=== PATIENT | male | born 1985 | race Caucasian/White ===

== ENCOUNTER 2020-05-04 18:00 | Emergency (ER) | payer MEDICAID, OTHER ==
[~2020-05-04] VITALS: Ht 182.9 cm; Wt 118.3 kg
[~2020-05-04 18:00] MED LIST: CLON0.5T PO; CLON1TAB PO; LISI-167 PO; LORA-446 PO; QUET300T5 PO; QUET400T PO
[2020-05-04 19:05] LABS: BASOPHILS # (AUTO) 0.11 x10^3/uL (0-0.1); BASOPHILS % (AUTO) 1 % (0-1); EOSINOPHILS # (AUTO) 0.17 x10^3/uL (0-0.4); EOSINOPHILS % (AUTO) 2 % (1-7); LYMPHOCYTES # (AUTO) 3.45 x10^3/uL (1-3.4); LYMPHOCYTES % (AUTO) 39 % (22-44); MD NO; MEAN CORPUSCULAR HEMOGLOBIN 30.9 pg (27.5-34.5); MEAN CORPUSCULAR HGB CONC 33.2 g/dL (33.2-36.2); MONOCYTES # (AUTO) 0.53 x10^3/uL (0.2-0.8); MONOCYTES % (AUTO) 6 % (2-9); NEUTROPHILS % (AUTO) 52 % (42-75); PLATELET COUNT 229 x10^3/uL (130-400); RED BLOOD COUNT 4.57 x10^6/uL (4.38-5.82); RED CELL DISTRIBUTION WIDTH 14.1 % (9.4-14.8)
[2020-05-04 19:14] LABS: ALANINE AMINOTRANSFERASE 38 U/L (12-78); ALBUMIN 3.2 g/dL (3.4-5.0); ANION GAP 7 mmol/L (5-15); CALCIUM 8.3 mg/dL (8.5-10.1); CHLORIDE 110 mmol/L (98-107); CREATININE 0.89 mg/dL (0.7-1.3)
[2020-05-04 19:15] LABS: SALICYLATE LEVEL < 1.7 mg/dL (2.8-20.0)
[2020-05-04 19:25] LABS: ALKALINE PHOSPHATASE 92 U/L (45-117); BILIRUBIN,TOTAL 0.4 mg/dL (0.2-1.0)
--- NOTE | 2020-05-04 20:03 | NUR ---
PT TO ROOM NOW.
[2020-05-04] MEDS ORDERED: RIVA10TA2 PO (20:18)
[2020-05-04] MEDS ORDERED: QUET400T4 PO (20:18)
[2020-05-04] MEDS ORDERED: OMEP10CA5 PO (20:18)
--- NOTE | 2020-05-04 20:19 | NUR ---
PT LAYING IN BED, COOPERATIVE. CALM BUT RUBBING FACE IN GESTURE OF STRESS. ALL BELONGINGS PLACED IN LOCKER, ROOM SECURED AND PT IN VIEW OF SITTER.
[2020-05-04 20:30] LABS: MICROSCOPIC NOT IND
[2020-05-04 20:40] LABS: AMPHETAMINE SCREEN, URINE Positive (Negative); BARBITURATE SCREEN, URINE Negative (Negative); BENZODIAZEPINE SCREEN, URINE Negative (Negative); CANNABINOID SCREEN, URINE Negative (Negative); COCAINE SCREEN, URINE Negative (Negative); METHADONE SCREEN, URINE Negative (Negative); OPIATE SCREEN, URINE Negative (Negative)
--- NOTE | 2020-05-04 20:51 | NUR ---
PT GIVEN FOOD. PT ASKED FOR MEDICATION "FOR THE VOICES" PT PROCEDED TO LAY DOWN AND CLOSE EYES. ERP MADE AWARE, WILL WATCH FOR ORDERS.
--- NOTE | 2020-05-04 21:56 | NUR ---
PT LAYING IN BED, SLEEPING, RESPIRATIONS EVEN AND UNLABORED, PT REMAINS IN VIEW OF THE SITTER. AWAITING TELEPSYCH CONSULT.
--- NOTE | 2020-05-04 22:48 | NUR ---
PT CONDITION REMAINS UNCHANGED.
--- NOTE | 2020-05-05 00:38 | NUR ---
PT REMAINS ASLEEP, CHANGING POSITIONS IN BED. AWAITING TELESPYCH.
--- NOTE | 2020-05-05 01:18 | NUR ---
TELESPYCH COMPLETED. PT AMBULATORY TO BATHROOM, STEADY GAIT. ASKING FOR SNACKS, FOOD PROVIDED.
--- NOTE | 2020-05-05 02:11 | NUR ---
HOSPITAL BED REQUESTED AT THIS TIME. ERP MADE AWARE OF PT'S MEDICATION REQUESTS, AWAITING ORDERS.
[2020-05-05] MEDS ORDERED: QUETIAPINE 100MG TABLET ONE ×3 (02:19→19:27)
--- NOTE | 2020-05-05 02:24 | NUR ---
PT MEDICATED PER MAR, UPDATED ON POC. ALL NEEDS MET AT THIS TIME. PT REMAINS IN VIEW OF SITTER.
[2020-05-05] MEDS ORDERED: QUETIAPINE 100MG TABLET PO ONE (02:30)
--- NOTE | 2020-05-05 02:59 | NUR ---
PT AMBULATORY TO BATHROOM. PT PLACED ON HOSPITAL BED, AND GIVEN MILK PER REQUEST.
--- NOTE | 2020-05-05 03:16 | NUR ---
MT: PSYCH PACKET FAXED TO [facility] AND MARY
--- NOTE | 2020-05-05 03:28 | NUR ---
MT: [facility] DENIED PT BECAUSE THEY DO NOT HAVE A CONTRACT WITH [facility].
--- NOTE | 2020-05-05 04:43 | NUR ---
PT LAYING IN BED SLEEPING, REMAINS IN VIEW OF THE SITTER.
--- NOTE | 2020-05-05 05:21 | NUR ---
PT CONDITION REMAINS UNCHANGED.
--- NOTE | 2020-05-05 07:41 | NUR ---
BEDSIDE REPORT FROM RODOLFO NAJERA, PT SLEEPING IN HOSPITAL BED WITH SITTER AT BEDSIDE. BREAKFAST TRAY ORDERED
--- NOTE | 2020-05-05 08:41 | NUR ---
PT WAS GIVEN BREAKFAST DIET TRAY AND IS EATING QUIETLY.
[2020-05-05] MEDS: QUETIAPINE 100MG TABLET PO SCH ×2 (14:50→19:34)
--- NOTE | 2020-05-05 21:00 | NUR ---
assumed care of pt. report form Giuliano NAJERA. pt here for SI. pt reports that he is still feeling suicidal at this time. reports a hx of schizophrenic and bipolar disorder. pt reports that he has had mulitple previous suicide attempts and that his current plan would be to get a gun and use it on himself. pt is calm and cooperatve. pt has had meal tray room secure. sitter present for safety. pt updated on POC
--- NOTE | 2020-05-05 21:05 | NUR ---
pt is on a hospital bed for comfort
--- NOTE | 2020-05-05 22:02 | NUR ---
pt sleeping in postion of comfort. no apparent distress. room secure. sitter present for safety
--- NOTE | 2020-05-05 23:48 | NUR ---
no changes. pt sleeping in position of comfort. no apparent distress room secure. sitter present for safety
--- NOTE | 2020-05-06 01:00 | NUR ---
pt sleeping. room secure. sitter present for safety
--- NOTE | 2020-05-06 01:33 | NUR ---
no changes. report to Shagufta NAJERA for lunch
--- NOTE | 2020-05-06 02:15 | NUR ---
pt sleeping in position of comfort with lights dimmed. no apparent distress room secure. sitter present for safety
--- NOTE | 2020-05-06 03:15 | NUR ---
no changes. pt sleeping in position of comfort with lights dimmed. no apparent distress. room secure. sitter present for safety
--- NOTE | 2020-05-06 03:56 | NUR ---
pt continues sleeping in position of comfort. no apparent distress. room secure. sitte present fo safety
--- NOTE | 2020-05-06 05:01 | NUR ---
no changes. pt remains asleep. no apparent distress room secure. sitter present for safety
--- NOTE | 2020-05-06 06:02 | NUR ---
pt still resting in position of comfort. no apparent distress. room secure. sitter present for safety
--- NOTE | 2020-05-06 07:00 | NUR ---
report to Ghazal NAJERA
--- NOTE | 2020-05-06 07:03 | NUR ---
REPORT RECEIVED FROM GAY NAJERA. PT IS SLEEPING ON HOSPITAL BED, RESP EVEN AND UNLABORED, MARY.
--- NOTE | 2020-05-06 08:10 | NUR ---
PT COOPERATIVE W/ VS, VSS, URIELN. PT OFFERED SHOWER, PT STATES HE WOULD LIKE TO SHOWER AFTER LUNCH.
--- NOTE | 2020-05-06 08:10 | NUR ---
GARAGE DOORS DOWN, SITTER OUTSIDE ROOM FOR SAFETY.
--- NOTE | 2020-05-06 08:26 | NUR ---
BREAKFAST TRAY DELIVERED.
[2020-05-06] MEDS ORDERED: QUETIAPINE 100MG TABLET ONE ×2 (08:27→17:39)
[2020-05-06] MEDS: QUETIAPINE 100MG TABLET PO SCH ×2 (08:31→17:42)
--- NOTE | 2020-05-06 08:55 | NUR ---
PT REPORTS HE HAS BEEN ON AN UNKNOWN DOSE OF XARELTO X5 WEEKS FOR "CLOTS IN THE LUNGS". PT REPORTS HE HAS BEEN OFF NOW FOR 2-3 DAYS DUE TO HOLD AT THIS FACILITY. PT REPORTS HE WAS SEEN AT [facility] AND PICKED UP RX AT A WEB [facility]Y. MEDICAL RECORDS REQUEST SIGNED AND FAXED TO [facility] @ [phone].
--- NOTE | 2020-05-06 09:10 | NUR ---
SPOKE W/ PHARMACIST FROM [facility] [phone]. PT PICKED UP RX FOR XARELTO DOSE PACK ON 04/07/20. RX WRITTEN 15MG BID X21 DAYS THEN 20MG DAILY X9 DAYS. DX FOR RX IS PE. DR.VAN ROBERTSON UPDATED, REPORTS HE WILL ORDER XARELTO 20MG DAILY FOR PT.
[2020-05-06] MEDS ORDERED: RIVAROXABAN 20 MG TABLET ONE (09:19)
[2020-05-06] MEDS: RIVAROXABAN 20 MG TABLET PO SCH (09:20)
--- NOTE | 2020-05-06 09:25 | NUR ---
PT MEDICATED W/ XARELTO ORDERED, PT RESTING ON HOSPITAL BED W/ SITTER OUTSIDE ROOM AND GARAGE DOORS DOWN FOR SAFETY. RESP EVEN AND UNLABORED, MARY.
--- NOTE | 2020-05-06 10:42 | NUR ---
PT SLEEPING ON HOSPITAL BED W/ SITTER OUTSIDE ROOM AND GARAGE DOORS DOWN FOR SAFETY. RESP EVEN AND UNLABORED, URIELN.
--- NOTE | 2020-05-06 12:17 | NUR ---
LUNCH TRAY DELIVERED.
--- NOTE | 2020-05-06 12:43 | NUR ---
PT SLEEPING ON HOSPITAL BED W/ SITTER OUTSIDE ROOM AND GARAGE DOORS DOWN FOR SAFETY. RESP EVEN AND UNLABORED, URIELN.
--- NOTE | 2020-05-06 12:51 | NUR ---
PT AMBULATED TO THE SHOWER W/ A STEADY GAIT. NEW GOWN AND SOCKS PROVIDED. SITTER OUTSIDE SHOWER ROOM FOR SAFETY.
--- NOTE | 2020-05-06 13:49 | NUR ---
PT RESTING ON HOSPITAL BED W/ SITTER OUTSIDE ROOM AND GARAGE DOORS DOWN FOR SAFETY. RESP EVEN AND UNLABORED, NADN. PROVIDED MILK PER PT REQUEST. DENIES FURTHER NEEDS AT THIS TIME.
--- NOTE | 2020-05-06 14:47 | NUR ---
SPOKE W/ MEDICAL RECORDS FROM [facility], THEY REPORT THEY FAXED 14 PAGES TO [phone] BUT WILL RESEND RECORDS NOW.
--- NOTE | 2020-05-06 16:50 | NUR ---
RECORDS RECEIVED FROM [facility] AND GIVEN TO DR.GRAUSZ SHO RADER. NO NEW ORDERS REQUIRED AT THIS TIME.
--- NOTE | 2020-05-06 17:28 | NUR ---
PT RESTING ON HOSPITAL BED W/ SITTER OUTSIDE ROOM AND GARAGE DOORS DOWN FOR SAFETY. RESP EVEN AND UNLABORED, MARY.
--- NOTE | 2020-05-06 17:44 | NUR ---
Pt provided with meal with safety precautions.
--- NOTE | 2020-05-06 17:45 | NUR ---
PT C/O AUDITORY HALLUCINATIONS AND INCREASING AGITATION/ANXIETY. PT REQUESTING PRN MEDS. DR.GRAUSZ SHO RADER UPDATED, GAVE OK TO GIVE SEROQUEL DOSE EARLY. PT MEDICATED PER EMAR, GIVEN DINNER TRAY, DENIES FURTHER NEEDS AT THIS TIME.
--- NOTE | 2020-05-06 18:58 | NUR ---
REPORT GIVEN TO NITHIN NAJERA. PT SLEEPING ON HOSPITAL BED W/ SITTER OUTSIDE ROOM AND GARAGE DOORS DOWN FOR SAFETY.
--- NOTE | 2020-05-06 19:50 | NUR ---
PT RESTING IN GURNEY, NAD NOTED, BREATHING EVEN AND UNLABORED, SITTER IN VIEW, SAFETY OF ROOM ENSURED, WILL CONTINUE TO MONITOR
[2020-05-06] MEDS ORDERED: TRAZODONE 50MG TABLET ONE (20:16)
--- NOTE | 2020-05-06 20:56 | NUR ---
PT MEDICATED PER MAR, PT AMBULATED WITHOUT ASSISTANCE TO RESTROOM, PROVIDED WITH GRAHMCRACKERS AND MILK PER REQUEST, SITTER IN VIEW, SAFETY OF ROOM ENSURED
[2020-05-06] MEDS ORDERED: TRAZODONE 50MG TABLET PO PRN (21:00)
--- NOTE | 2020-05-06 22:38 | NUR ---
PT APPEARS TO BE SLEEPING WITH NAD NOTED, BREATHING EVEN AND UNLABORED, SAFETY OF ROOM ENSURED, SITTER IN VIEW
--- NOTE | 2020-05-06 23:46 | NUR ---
NO CHANGES, PT APPEARS SLEEPING AND COMFORTABLE, SITTER IN VIEW FOR SAFETY
--- NOTE | 2020-05-07 00:52 | NUR ---
PT CONTINES TO SLEEP IN BED, NAD NOTED, SAFETY OF ROOM ENSURED, SITTER IN VIEW
--- NOTE | 2020-05-07 01:11 | NUR ---
PT PROVIDED WITH APPLE JUICE PER REQUEST
--- NOTE | 2020-05-07 02:34 | NUR ---
PT RESTING AND APPEARS COMFORTABLE IN BED, NAD NOTED, BREATHING EVEN AND UNLABORED, SAFETY OF ROOM ENSURED, SITTER IN VIEW, WILL CONTINUE TO MONITOR
--- NOTE | 2020-05-07 03:36 | NUR ---
NO CHANGES, PT RESTING, SITTER IN VIEW
--- NOTE | 2020-05-07 04:44 | NUR ---
PT RESTING AND APPEARS COMFORTABLE IN BED, NAD NOTED, BREATHING EVEN AND UNLABORED, SAFETY OF ROOM ENSURED, SITTER IN VIEW, WILL CONTINUE TO MONITOR
--- NOTE | 2020-05-07 05:54 | NUR ---
NO CHANGES, PT RESTING, SITTER IN VIEW
[2020-05-07] MEDS ORDERED: QUETIAPINE 100MG TABLET ONE (07:25)
[2020-05-07] MEDS ORDERED: RIVAROXABAN 20 MG TABLET ONE (07:25)
[2020-05-07] MEDS: QUETIAPINE 100MG TABLET PO SCH (08:43)
[2020-05-07] MEDS: RIVAROXABAN 20 MG TABLET PO SCH (08:43)
--- NOTE | 2020-05-07 08:44 | NUR ---
PT PROVIDED WITH MEAL TRAY, PT STATES HE REMAINS "FEELING THE SAME" STATE HE STILL FEELS SUICIDAL. PT MEDICATED PER MAR, PT REQUESTING TO SLEEP, DOOR SHUT PER REQUEST, SITTER IN PLACE. NO OTHER NEEDS AT THIS TIME.
--- NOTE | 2020-05-07 10:09 | NUR ---
THROUGHPUT: UPDATED PACKET REFAXED TO [facility] PER FACILITY REQUEST.
--- NOTE | 2020-05-07 11:48 | NUR ---
PT CONTINUES TO REST ON HOSPITAL BED, VISIBLE CHEST RISE AND FALL NOTED, NAD
[2020-05-07 14:19] VITALS: BP 97/57
--- NOTE | 2020-05-07 14:59 | NUR ---
MEAL TRAY PROVIDED. NO OTHER NEEDS AT THIS TIME
--- NOTE | 2020-05-07 18:00 | NUR ---
PT GIVEN MEAL TRAY, PER JEFFY GUTIERREZ PT IS TO BE DECERFIED LH AND DISCHARGED. PT GIVEN ALL BELONGINGS BACK, AWAITING DC PAPERWORK
--- NOTE | 2020-05-07 18:50 | NUR ---
PT LEFT WITHOUT RECIEVING PAPERS. PT HAD SCRIPT FROM FOR SEROQUEL, STATES "I CAN LEAVE RIGHT IM FREE, I NEED TO GET [facility]" WILL UPDATE ERMD
[2020-05-07] MEDS ORDERED: QUETIAPINE 100MG TABLET PO SCH (21:00)
[2020-05-08] MEDS ORDERED: QUETIAPINE 100MG TABLET PO SCH (09:00)
== END 2020-05-07 19:04 | disposition home or self-care (01) ==
LOC: ED 05-05 09:16
DX: R45.851 Suicidal ideations (principal); R44.0 Auditory hallucinations; I10 Essential (primary) hypertension; F17.210 Nicotine dependence, cigarettes, uncomplicated; Z88.0 Allergy status to penicillin
CPT/HCPCS: 36415; 80053; 80307; 81003; 84443; 85025; 99285

== ENCOUNTER 2020-05-09 04:25 | Observation (INO) | payer MEDICAID, OTHER ==
[~2020-05-09] VITALS: Ht 182.9 cm; Wt 113.4 kg
[~2020-05-09 04:25] MED LIST changes: +OMEP10CA5 PO; +QUET400T4 PO; +RIVA10TA2 PO
--- NOTE | 2020-05-09 04:40 | NUR ---
PATIENT TOOK "6 ADDERAL AND 6 FOLKMAN" 45 MINS PRIOR TO ARRIVAL. PATIENT STATED THAT THE MEDICATIONS WERE PRESCRIBED BY THE DOCTOR AND THEREFORE HE COULD TAKE THEM. EDUCATION GIVEN REGARDING PRESCRIPTIONS AND TAKING MEDICATIONS THEY ARE PRESCRIBED AND NOT ABUSING MEDICATIONS. NO EVIDENCE OF LEARNING EXHIBITED. PROVIDER AT BEDSIDE WITH PATIENT.
[2020-05-09] MEDS ORDERED: LORazepam 2 MG/ML, 1ML ONE (05:17)
[2020-05-09] MEDS ORDERED: SODIUM CHLORIDE FLUSH 10ML SYR IVF ONE (05:30)
[2020-05-09] MEDS ORDERED: LORazepam 2 MG/ML, 1ML IVPush ONE (05:30)
[2020-05-09] MEDS ORDERED: SODIUM CHLORIDE 0.9% 1,000ML IVBOLUS ONE (05:30)
--- NOTE | 2020-05-09 05:32 | NUR ---
PATIENT REFUSED ATIVAN
[2020-05-09 05:44] LABS: BASOPHILS # (AUTO) 0.12 x10^3/uL (0-0.1); BASOPHILS % (AUTO) 1 % (0-1); EOSINOPHILS # (AUTO) 0.04 x10^3/uL (0-0.4); EOSINOPHILS % (AUTO) 0 % (1-7); LYMPHOCYTES # (AUTO) 1.72 x10^3/uL (1-3.4); LYMPHOCYTES % (AUTO) 18 % (22-44); MD NO; MEAN CORPUSCULAR HEMOGLOBIN 30.9 pg (27.5-34.5); MEAN CORPUSCULAR HGB CONC 33.1 g/dL (33.2-36.2); MEAN PLATELET VOLUME 7.3 fL (7.4-10.4); MONOCYTES # (AUTO) 0.55 x10^3/uL (0.2-0.8); MONOCYTES % (AUTO) 6 % (2-9); NEUTROPHILS # (AUTO) 7.34 x10^3/uL (1.8-6.8); NEUTROPHILS % (AUTO) 75 % (42-75); PLATELET COUNT 248 x10^3/uL (130-400); RED CELL DISTRIBUTION WIDTH 13.9 % (9.4-14.8)
--- NOTE | 2020-05-09 05:47 | NUR ---
WHEN ASKING THE PATIENT ABOUT WHY HE WANTED TO REFUSE ATIVAN, PATIENT STATED "i HAVE AN ADDICTIVE PERSONALITY AND DO NOT WANT TO BECOME ADDICTED TO A BENZO.". EDUCATION PROVIDED TO PATIENT. PATIENT DID AGREE TO IV AND FLUIDS, CONTINUED TO REFUSED ATIVAN.
[2020-05-09 05:48] LABS: ALANINE AMINOTRANSFERASE 33 U/L (12-78); ALBUMIN 4.4 g/dL (3.4-5.0); ANION GAP 6 mmol/L (5-15); CALCIUM 9.2 mg/dL (8.5-10.1); CHLORIDE 108 mmol/L (98-107); CREATININE 1.38 mg/dL (0.7-1.3)
[2020-05-09 05:53] LABS: ALKALINE PHOSPHATASE 96 U/L (45-117); BILIRUBIN,TOTAL 0.5 mg/dL (0.2-1.0); CREATINE KINASE, TOTAL 96 U/L (39-308); TOTAL PROTEIN 8.7 g/dL (6.4-8.2); TROPONIN I < 0.015 ng/mL (0.000-0.045)
--- NOTE | 2020-05-09 08:36 | NUR ---
PT TO BE ADMITTED. VSS, PT RESTING. MEAL TRAY ORDERED
[2020-05-09] MEDS ORDERED: ONDANSETRON ODT 4 MG PO PRN (09:30)
[2020-05-09] MEDS ORDERED: DOCUSATE 100 MG CAPSULE PO PRN (09:30)
[2020-05-09] MEDS ORDERED: PHARMACY MAY ADJ FOR RENAL FX MC PRN (09:30)
[2020-05-09] MEDS ORDERED: ACETAMINOPHEN 325 MG TABLET PO PRN (09:30)
[2020-05-09] MEDS ORDERED: ONDANSETRON 2MG/ML, 2ML IVPush PRN (09:30)
[2020-05-09 09:50] VITALS: BP 157/103
[2020-05-09] MEDS ORDERED: RIVAROXABAN 20 MG TABLET PO SCH (10:00)
[2020-05-09] MEDS: SODIUM CHLORIDE 0.9% 1,000 ML IV SCH ×2 (11:30→19:30)
[2020-05-09] MEDS ORDERED: PRAZ2CAP2 PO (12:32)
[2020-05-09] MEDS ORDERED: OMEP-110 PO (12:32)
[2020-05-09] MEDS ORDERED: QUET200T PO (12:33)
[2020-05-09 13:08] LABS: AMPHETAMINE SCREEN, URINE Positive (Negative); BARBITURATE SCREEN, URINE Negative (Negative); BENZODIAZEPINE SCREEN, URINE Negative (Negative); CANNABINOID SCREEN, URINE Negative (Negative); COCAINE SCREEN, URINE Negative (Negative); METHADONE SCREEN, URINE Negative (Negative); OPIATE SCREEN, URINE Negative (Negative)
[2020-05-09 15:53] VITALS: BP 150/88
[2020-05-09] MEDS ORDERED: OMEPRAZOLE 20 MG CAPSULE.DR PO SCH (16:00)
[2020-05-09 20:39] VITALS: BP 154/91
[2020-05-09] MEDS ORDERED: PRAZOSIN 2 MG CAPSULE PO ONE (23:30)
[2020-05-09] MEDS ORDERED: QUETIAPINE 200 MG TABLET PO ONE (23:30)
== END 2020-05-10 00:51 | disposition left against medical advice (07) ==
LOC: ED 06:07 → EDIP 08:19 → INTOOBSV 08:19 → 4EST 09:33
PROVIDERS: ADMIT Family Medicine; ATTEND Family Medicine
DX: T43.631A Poisoning by methylphenidate, accidental (unintentional), initial encounter (principal); T43.621A Poisoning by amphetamines, accidental (unintentional), initial encounter; R00.0 Tachycardia, unspecified; K21.9 Gastro-esophageal reflux disease without esophagitis; J45.909 Unspecified asthma, uncomplicated; U07.1 COVID-19; N17.9 Acute kidney failure, unspecified; I10 Essential (primary) hypertension; F60.3 Borderline personality disorder; F31.9 Bipolar disorder, unspecified; F25.9 Schizoaffective disorder, unspecified; F43.10 Post-traumatic stress disorder, unspecified; F15.20 Other stimulant dependence, uncomplicated; F17.210 Nicotine dependence, cigarettes, uncomplicated; D68.59 Other primary thrombophilia; I26.99 Other pulmonary embolism without acute cor pulmonale; Y92.89 Other specified places as the place of occurrence of the external cause
CPT/HCPCS: 36415; 80053; 80307; 82550; 83735; 84443; 84484; 85025; 93005; 99284; G0378; J7030

== ENCOUNTER 2020-05-16 03:07 | Emergency (ER) | payer MEDICAID ==
[~2020-05-16] VITALS: Ht 182.9 cm; Wt 111.6 kg
[~2020-05-16 03:07] MED LIST changes: +OMEP-110 PO; +PRAZ2CAP2 PO; +QUET200T PO
[2020-05-16 03:10] VITALS: BP 171/111
--- NOTE | 2020-05-16 03:17 | NUR ---
PT AMB TO ROOM FROM TRIAGE NO ASSIST. PT STATING "I HAVE THAT VIRUS AGAIN, I HAVE HAD IT TWICE SO FAR"
[2020-05-16] MEDS ORDERED: QUET200T4 PO (03:28)
--- NOTE | 2020-05-16 03:30 | NUR ---
PT LAYING IN [facility] [facility], PT STATES HE IS HERE DUE TO BEING CONCERNED THAT HE HAS THE VIRUS AGAIN. PT STATES HE HAS A COUGH AND RUNNY NOSE. PT APPEARS SLIGHTLY ANXIOUS. NO OTHER SYMPTOMS OR COMPLAINTS AT THIS TIME. CHEST RISE AND FALL EQUAL BILATERALLY. EDWAR. ORLY RADER AT BS.
--- NOTE | 2020-05-16 03:52 | NUR ---
Patient given discharge instructions and they have confirmed that they understand the instructions. Patient ambulatory with steady gait. NAD, VSS, DENIES ADDITIONAL NEEDS AT THIS TIME, RN ANSWERED ALL QUESTIONS APPROPRIATELY. NO PT BELONGINGS LEFT IN ROOM AFTER DC.
== END 2020-05-16 03:53 | disposition home or self-care (01) ==
LOC: ED 03:31
DX: B34.9 Viral infection, unspecified (principal); F15.10 Other stimulant abuse, uncomplicated; Z72.9 Problem related to lifestyle, unspecified; I10 Essential (primary) hypertension; F17.210 Nicotine dependence, cigarettes, uncomplicated
CPT/HCPCS: 99406

== ENCOUNTER 2020-11-17 11:37 | Emergency (ER) | payer MEDICAID ==
[~2020-11-17] VITALS: Ht 182.9 cm; Wt 137.0 kg
[~2020-11-17 11:37] MED LIST changes: +QUET200T4 PO
--- NOTE | 2020-11-17 13:18 | NUR ---
xr at bedside
[2020-11-17 13:36] LABS: BASOPHILS % (AUTO) 1 % (0-1); EOSINOPHILS % (AUTO) 1 % (1-7); LYMPHOCYTES % (AUTO) 23 % (22-44); MEAN CORPUSCULAR HEMOGLOBIN 31.5 pg (27.5-34.5); MEAN CORPUSCULAR HGB CONC 33.6 g/dL (33.2-36.2); MEAN PLATELET VOLUME 6.4 fL (7.4-10.4); MONOCYTES % (AUTO) 9 % (2-9); NEUTROPHILS % (AUTO) 67 % (42-75); PLATELET COUNT 274 x10^3/uL (130-400); RED BLOOD COUNT 4.79 x10^6/uL (4.38-5.82); RED CELL DISTRIBUTION WIDTH 13.8 % (9.4-14.8)
[2020-11-17 13:39] LABS: MD NO
[2020-11-17 13:50] LABS: ALBUMIN 3.9 g/dL (3.4-5.0); ANION GAP 6 mmol/L (5-15); CALCIUM 8.6 mg/dL (8.5-10.1); CHLORIDE 110 mmol/L (98-107)
[2020-11-17 13:53] LABS: ALANINE AMINOTRANSFERASE 38 U/L (12-78); ALKALINE PHOSPHATASE 82 U/L (45-117); BILIRUBIN,TOTAL 0.9 mg/dL (0.2-1.0); CREATININE 1.14 mg/dL (0.7-1.3); TOTAL PROTEIN 7.8 g/dL (6.4-8.2)
[2020-11-17 15:36] VITALS: BP 152/92
--- NOTE | 2020-11-17 16:09 | NUR ---
TASK RN: DC EDUCATION PROVIDED, PT DEMONSTRATES UNDERSTANDING. IV DC'D. PT UP TO DRESS SELF. PRIMARY RN AWARE.
== END 2020-11-17 16:35 | disposition home or self-care (01) ==
LOC: ED 16:29
DX: B34.9 Viral infection, unspecified (principal); Z20.822 Contact with and (suspected) exposure to COVID-19; J02.9 Acute pharyngitis, unspecified; R05 Cough; R51.9 Headache, unspecified; R00.0 Tachycardia, unspecified; I10 Essential (primary) hypertension; Z88.0 Allergy status to penicillin; Z88.5 Allergy status to narcotic agent; Z88.8 Allergy status to other drugs, medicaments and biological substances
CPT/HCPCS: 36415; 71045; 80053; 85025; 85379; 87635; 93005; 99285

== ENCOUNTER 2020-11-21 20:53 | Emergency (ER) | payer MEDICAID ==
[~2020-11-21] VITALS: Ht 182.9 cm; Wt 139.9 kg
[2020-11-21] MEDS ORDERED: QUETIAPINE 100MG TABLET PO SCH (21:30)
[2020-11-21] MEDS ORDERED: LORazepam 1MG TABLET PO ONE (21:30)
[2020-11-21] MEDS ORDERED: QUETIAPINE 100MG TABLET ONE (21:44)
[2020-11-21] MEDS ORDERED: LORazepam 1MG TABLET ONE (21:44)
[2020-11-21 21:54] LABS: BASOPHILS % (AUTO) 1 % (0-1); EOSINOPHILS % (AUTO) 2 % (1-7); LYMPHOCYTES % (AUTO) 38 % (22-44); MD NO; MEAN CORPUSCULAR HEMOGLOBIN 31.4 pg (27.5-34.5); MEAN CORPUSCULAR HGB CONC 34.2 g/dL (33.2-36.2); MEAN PLATELET VOLUME 6.4 fL (7.4-10.4); MONOCYTES % (AUTO) 9 % (2-9); NEUTROPHILS % (AUTO) 50 % (42-75); PLATELET COUNT 275 x10^3/uL (130-400); RED BLOOD COUNT 4.56 x10^6/uL (4.38-5.82); RED CELL DISTRIBUTION WIDTH 13.7 % (9.4-14.8)
[2020-11-21 22:06] LABS: ALANINE AMINOTRANSFERASE 38 U/L (12-78); ALBUMIN 3.6 g/dL (3.4-5.0); ANION GAP 10 mmol/L (5-15); CHLORIDE 107 mmol/L (98-107); CREATININE 0.99 mg/dL (0.7-1.3); SALICYLATE LEVEL 2.3 mg/dL (2.8-20.0)
[2020-11-21 22:07] LABS: AMPHETAMINE SCREEN, URINE Positive (Negative); BARBITURATE SCREEN, URINE Negative (Negative); BENZODIAZEPINE SCREEN, URINE Negative (Negative); CANNABINOID SCREEN, URINE Negative (Negative); COCAINE SCREEN, URINE Negative (Negative); METHADONE SCREEN, URINE Negative (Negative); OPIATE SCREEN, URINE Negative (Negative)
[2020-11-21 22:08] LABS: ALKALINE PHOSPHATASE 102 U/L (45-117); BILIRUBIN,TOTAL 0.6 mg/dL (0.2-1.0); TOTAL PROTEIN 7.3 g/dL (6.4-8.2)
--- NOTE | 2020-11-21 22:22 | NUR ---
patient resting in bed in NAD. call rodriguez in reach. safety maintained. will continue to monitor. tele psych cart in room. patient notified of to what it was. eating snack in bed. sandwich obtained and given to patient by tech. 1:1 sitting in view of patient
--- NOTE | 2020-11-21 23:25 | NUR ---
PACKET FAXED TO [facility] AND [facility] AT THIS TIME.
[2020-11-21] MEDS ORDERED: ONDANSETRON ODT 4 MG ONE (23:26)
[2020-11-21] MEDS ORDERED: OMEPRAZOLE 20 MG CAPSULE.DR ONE (23:26)
[2020-11-21] MEDS ORDERED: OMEPRAZOLE 20 MG CAPSULE.DR PO ONE (23:30)
[2020-11-21] MEDS ORDERED: ONDANSETRON ODT 4 MG PO ONE (23:30)
--- NOTE | 2020-11-21 23:45 | NUR ---
[facility] DECLINED PT AT THIS TIME. SPOKE TO JAXON WHO STATES "WE DONT ACCEPT THE HOLDER BRIAN PLAN."
--- NOTE | 2020-11-22 00:02 | NUR ---
xander NAJERA from [facility] down to consult with patient. Xander NAJERA did discuss plan with this RN. will continue to monitor patient. in NAD. call rodriguez in reach. 1:1 sitter in view of patient.
--- NOTE | 2020-11-22 00:26 | NUR ---
SECONDARY INSURANCE ON PT. PACKET FAXED TO [facility] AT THIS TIME. [facility] SUP JARET WILLING TO CONSIDER PT IF HE WILL COOPERATE WITH ASSESSMENT, PT REFUSING AT THIS TIME.
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
--- NOTE | 2020-11-22 03:15 | NUR ---
patient resting in bed with eyes closed, at times patient speaks in sleep. arousable to touch on shoulder. 1:1 sitter in view of patient. in NAD. safety maintained
--- NOTE | 2020-11-22 04:23 | NUR ---
patient resting in bed on L lateral side. in NAD. safety maintained. 1:1 sitter in view of patient.
--- NOTE | 2020-11-22 05:30 | NUR ---
patient resting in bed prone. in NAD. call rodriguez in reach. safety maintained. 1:1 sitter in view of patient
--- NOTE | 2020-11-22 06:30 | NUR ---
patient resting in bed in prone position. 1:1 sitter in view of patient. safety maintained
--- NOTE | 2020-11-22 07:03 | NUR ---
report given to China NAJERA
--- NOTE | 2020-11-22 08:06 | NUR ---
Pt left side lying, eyes closed, even resp rate and effort. Sitter outside room.
--- NOTE | 2020-11-22 10:01 | NUR ---
BREAK RN: PT SITTING UP ON GURNEY EATING BREAKFAST, NAD, CALM & COOPERATIVE, PT REMAINS IN SAFE ENVIRONMENT, SITTER IN VIEW.
[2020-11-22 10:49] VITALS: BP 124/81
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
--- NOTE | 2020-11-22 11:27 | NUR ---
COVID swab re-done and hand walked to lab.
--- NOTE | 2020-11-22 12:02 | NUR ---
Report to Amber NAJERA. Pt to be transported via [employer]
== END 2020-11-22 12:52 ==
LOC: ED 21:54
DX: F15.151 Other stimulant abuse with stimulant-induced psychotic disorder with hallucinations (principal); Z20.822 Contact with and (suspected) exposure to COVID-19; F20.9 Schizophrenia, unspecified; R45.850 Homicidal ideations; I10 Essential (primary) hypertension; F17.210 Nicotine dependence, cigarettes, uncomplicated
CPT/HCPCS: 36415; 80053; 80299; 80307; 80320; 80329; 85025; 87426; 99285; 99406; Q0162; G0480

== ENCOUNTER 2020-11-30 01:44 | Emergency (ER) | payer MEDICAID ==
[~2020-11-30] VITALS: Ht 182.9 cm; Wt 134.7 kg
[~2020-11-30 01:44] MED LIST changes: +CLIN150C15 PO; +NICO-486 TD; +QUET100T PO; +SERT50TA28 PO
--- NOTE | 2020-11-30 02:06 | NUR ---
CC OF SI THOUGHTS "FROM THE VOICES IN MY HEAD". PT STATES HE IS FROM [place] SO HE IS HAVING A HARD TIME FILLING HIS PRESCRIPTION HERE FOR SEROQUEL. PT DOES HAVE PLAN OF GETTING HELP WITH BUS TICKET ON TUESDAY TO GET BACK HOME.
[2020-11-30] MEDS ORDERED: QUETIAPINE 100MG TABLET PO ONE (02:30)
[2020-11-30] MEDS ORDERED: QUETIAPINE 100MG TABLET ONE (02:31)
--- NOTE | 2020-11-30 03:07 | NUR ---
REPORT GIVEN TO HI NAJERA
--- NOTE | 2020-11-30 03:11 | NUR ---
REPORT RECIEVED FROM DANIA GUZMÁN. PT RESTING IN [facility], PROVIDED SODA PER REQUEST, NO OTHER NEEDS AT THIS TIME
--- NOTE | 2020-11-30 04:19 | NUR ---
PT SLEEPING, RESP EVEN/UNLABORED, SAFETY PRECAUTIONS IN PLACE
[2020-11-30 04:46] VITALS: BP 110/58
--- NOTE | 2020-11-30 05:40 | NUR ---
DR. BAH SPOKE WITH PATIENT, PATIENT FEELING BETTER AFTER RECIEVING MEDICATION, AND PATIENT IS AGREEABLE TO RECIEVE RESOURCES TO HELP HIM OBTAIN HIS MEDICATIONS OUTSIDE OF HOSPITAL, NO OTHER ISSUES AT THIS TIME
== END 2020-11-30 06:26 | disposition home or self-care (01) ==
LOC: ED 06:11
DX: F31.9 Bipolar disorder, unspecified (principal); F20.9 Schizophrenia, unspecified; F15.10 Other stimulant abuse, uncomplicated; Z72.9 Problem related to lifestyle, unspecified; I10 Essential (primary) hypertension; Z88.8 Allergy status to other drugs, medicaments and biological substances; Z88.0 Allergy status to penicillin
CPT/HCPCS: 99284

== ENCOUNTER 2020-12-04 19:04 | Emergency (ER) | payer MEDICAID ==
[~2020-12-04] VITALS: Ht 182.9 cm; Wt 138.0 kg
[2020-12-04 19:32] LABS: BASOPHILS % (AUTO) 1 % (0-1); EOSINOPHILS % (AUTO) 2 % (1-7); LYMPHOCYTES % (AUTO) 28 % (22-44); MEAN CORPUSCULAR HEMOGLOBIN 31.9 pg (27.5-34.5); MEAN CORPUSCULAR HGB CONC 34.7 g/dL (33.2-36.2); MEAN PLATELET VOLUME 6.6 fL (7.4-10.4); MONOCYTES % (AUTO) 7 % (2-9); NEUTROPHILS % (AUTO) 62 % (42-75); PLATELET COUNT 308 x10^3/uL (130-400); RED BLOOD COUNT 4.75 x10^6/uL (4.38-5.82); RED CELL DISTRIBUTION WIDTH 13.7 % (9.4-14.8)
[2020-12-04 19:33] LABS: MD NO
[2020-12-04 19:37] LABS: ALANINE AMINOTRANSFERASE 42 U/L (12-78); ALBUMIN 3.9 g/dL (3.4-5.0); ANION GAP 9 mmol/L (5-15); CALCIUM 8.5 mg/dL (8.5-10.1); CHLORIDE 107 mmol/L (98-107); CREATININE 0.85 mg/dL (0.7-1.3); SALICYLATE LEVEL 2.3 mg/dL (2.8-20.0)
[2020-12-04 19:39] LABS: ALKALINE PHOSPHATASE 126 U/L (45-117); BILIRUBIN,TOTAL 0.5 mg/dL (0.2-1.0)
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
[2020-12-04] MEDS ORDERED: ZIPRASIDONE 20 MG INJ IM ONE (20:00)
--- NOTE | 2020-12-04 20:34 | NUR ---
Pt calm in bed. Free of harm. Sitter remains outside room. Pt with no changes, remains calm and cooperative at this time.
[2020-12-04 21:04] LABS: AMPHETAMINE SCREEN, URINE Positive (Negative); BARBITURATE SCREEN, URINE Negative (Negative); BENZODIAZEPINE SCREEN, URINE Negative (Negative); COCAINE SCREEN, URINE Negative (Negative); METHADONE SCREEN, URINE Negative (Negative); OPIATE SCREEN, URINE Negative (Negative)
[2020-12-04 21:05] LABS: CANNABINOID SCREEN, URINE Negative (Negative)
--- NOTE | 2020-12-04 21:30 | NUR ---
Pt calm in room, free of harm, tele doc in with patient, food provided. Sitter outside room. Pt with no changes. Will monitor closely.
--- NOTE | 2020-12-04 22:24 | NUR ---
Pt calm in bed, Resting, no changes, free of harm. Sitter outside room. Will monitor.
--- NOTE | 2020-12-04 22:47 | NUR ---
Telepsych eval in room with Dr Hernandez. Pt appears agitated with answering questions. Dr Hernandez recommends psych admit. Rebecca TRUJILLO aware. VSS. Pt resting. Sitter outside room.
--- NOTE | 2020-12-04 23:41 | NUR ---
Pt calm in bed. Free of harm. Sitter outside room. Will monitor.
--- NOTE | 2020-12-05 01:42 | NUR ---
packet faxed to [facility], [facility], [facility].
--- NOTE | 2020-12-05 02:30 | NUR ---
Pt calm, resting, sleeping, no distress, no changes. Pt free of harm, sitter outside room.
--- NOTE | 2020-12-05 05:16 | NUR ---
Behavioral health nurse at bedside to evaluate patient. Pt calm and cooperative. PO fluids given and tolerated well. Pt calm in bed, Free of harm. Sitter outside room. No further changes.
--- NOTE | 2020-12-05 05:47 | NUR ---
Pt calm. No changes. Remains A&O. Free of harm. Sitter outside room.
--- NOTE | 2020-12-05 07:09 | NUR ---
Report from Giuliano NAJERA
--- NOTE | 2020-12-05 08:15 | NUR ---
pt resting comfortably on gurney with sitter outside the room within view. garage doors down. vitals updated. breakfast tray ordered. sprite provided in cup. awaiting disposition. NADN, no further needs.
--- NOTE | 2020-12-05 10:01 | NUR ---
KOBE RN: BIB WILL ACCEPT PT SELF PAY ONLY. PT DECLINED. Addendum: 12/05/20 at 1150 by CBBEARCIAGA KOBE RN: [facility] WILL ACCEPT PT SELF PAY ONLY. PT DECLINED.
--- NOTE | 2020-12-05 10:03 | NUR ---
pt resting comfortably on gurney in safe room with sitter outside door. NADN and no further needs at this time.
--- NOTE | 2020-12-05 11:05 | NUR ---
pt resting comfortably on gurney in safe room with sitter outside door. NADN and no further needs at this time.
--- NOTE | 2020-12-05 13:44 | NUR ---
pt provided with security lunch tray. he is resting comfortably in a safe room with a sitter outside the door. additional drinks provided in cup. no further needs at this time.
[2020-12-05] MEDS ORDERED: QUETIAPINE 25MG TABLET PO SCH (14:00)
[2020-12-05] MEDS ORDERED: QUETIAPINE 25MG TABLET ONE (14:35)
[2020-12-05] MEDS ORDERED: QUETIAPINE 25MG TABLET PO ONE (15:00)
[2020-12-05] MEDS ORDERED: SERTRALINE 50MG TABLET PO SCH (15:00)
--- NOTE | 2020-12-05 16:20 | NUR ---
Joanne slaughter in [facility] - 12/05/20 at 1754 by OVIDIO REPORT TO YANN NAJERA
[2020-12-05] MEDS ORDERED: SERTRALINE 50MG TABLET ONE (16:45)
--- NOTE | 2020-12-05 17:57 | NUR ---
Pt continues to rest comfortably in a safe room with a sitter outside the room within view. dinner tray provided. no further needs at this time.
--- NOTE | 2020-12-05 18:37 | NUR ---
TP RN: PER RONNA EVANS, PLAN IS TO REASSESS PT TOMORROW FOR DISPO.
--- NOTE | 2020-12-05 18:39 | NUR ---
pt to shower with supervision. pt provided clean linens and socks
--- NOTE | 2020-12-05 18:50 | NUR ---
report to Clemente NAJERA
--- NOTE | 2020-12-05 18:57 | NUR ---
bedside report received from jarrod roper, pt care transferred at this time. pt resting on gurney, nad, antiperspirant applied, room secured, warm blankets provided for comfort, sprite and crackers provided as well. pt denies additional needs at this time, room secured, sitter in line of sight, [facility].
--- NOTE | 2020-12-05 20:09 | NUR ---
pt resting on gurney, eyes closed, even and unlabored respirations, nad, appears comfortable, room secured, sitter in line of sight, wctm. L2K
[2020-12-05] MEDS ORDERED: QUETIAPINE 100MG TABLET PO SCH ×2 (21:00)
[2020-12-05] MEDS ORDERED: PRAZOSIN 2 MG CAPSULE PO SCH (21:00)
--- NOTE | 2020-12-05 21:23 | NUR ---
PT RESTING ON GURNEY, NAD, APPEARS COMFORTABLE, EYES CLOSED, EVEN AND UNLABORED RESPIRATIONS, BED IN LOWEST, SITTER IN LINE OF SIGHT, ROOM SECURED, WCTM. L2K
--- NOTE | 2020-12-05 22:27 | NUR ---
pt resting on gurney on left side, hospital bed ordered, even and unlabored respirations, eyes closed, lihgts dimmed for comfort, bed in lowest, sitter in line of sight, si precautions in place, wctm. L2K
[2020-12-05] MEDS ORDERED: QUETIAPINE 100MG TABLET ONE (22:31)
--- NOTE | 2020-12-05 23:01 | NUR ---
pt moved to hospital bed for comfort, nad, denies additional needs, room secured, bed in lowest, sitter in line of sight, no change in condition, wctm. L2K
--- NOTE | 2020-12-06 01:06 | NUR ---
pt resting on hospital bed on back, no change in condition, room secured, sitter in line of sight, tm. L2K
--- NOTE | 2020-12-06 02:34 | NUR ---
PT RESTING ON HOSPITAL BED, NAD, NO CHANGE IN CONDITION. SITTER IN LINE OF SIGHT, SI PRECAUTIONS IN PLACE. BREAKFAST TRAY ORDERED, TM. L2K
--- NOTE | 2020-12-06 04:30 | NUR ---
pt resting on hospital bed, no change in condition, eyes closed, laying on back, sitter in line of sight, room secured, wctm. L2K
--- NOTE | 2020-12-06 06:30 | NUR ---
pt resting on hospital bed, no change in condition, eyes closed, laying on back, sitter in line of sight, room secured, wctm. L2K
--- NOTE | 2020-12-06 06:54 | NUR ---
report to oralia roper, pt care transferred at this time.
--- NOTE | 2020-12-06 07:45 | NUR ---
Pt resting, rigth side lying. sitter outside room.
--- NOTE | 2020-12-06 08:51 | NUR ---
Patient given breakfast, calm and cooperative. sitter outside room.
--- NOTE | 2020-12-06 09:53 | NUR ---
pt resting, right side lying. awaiting re-eval. Sitter outside room.
--- NOTE | 2020-12-06 10:53 | NUR ---
pt provided with sprite per request. sitter outside room, VS checked. awaitig cash management officer to evaluate.
[2020-12-06 10:55] VITALS: BP 122/75
[2020-12-06] MEDS ORDERED: SERTRALINE 50MG TABLET ONE (12:40)
--- NOTE | 2020-12-06 12:42 | NUR ---
pt provided with lunch tray. pt to be transported back to [place], [facility] bus ticket provided by outreach and education social worker.
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
== END 2020-12-06 13:50 | disposition home or self-care (01) ==
LOC: ED 23:29
DX: F25.9 Schizoaffective disorder, unspecified (principal); R45.851 Suicidal ideations; F15.10 Other stimulant abuse, uncomplicated; F33.9 Major depressive disorder, recurrent, unspecified; I10 Essential (primary) hypertension; Z88.0 Allergy status to penicillin; Z88.9 Allergy status to unspecified drugs, medicaments and biological substances
CPT/HCPCS: 36415; 80053; 80299; 80307; 80320; 80329; 85025; 99284; G0480